=== PATIENT | male | born 1960 | race Caucasian/White ===

== ENCOUNTER → 2018-11-16 | Outpatient (CLI) | payer OTHER ==
[2018-11-16 09:06] LABS: BASO % 1 % (0-3); EOS # 0.3 x10^3/uL (0.0-0.7); EOS % 6 % (0-3); HEMATOCRIT 43.2 % (39.0-53.0); HEMOGLOBIN 14.5 g/dL (13.0-17.5); LYMPH # 0.7 x10^3/uL (1.0-4.8); LYMPH % 15 % (24-48); MEAN CORPUSCULAR HEMOGLOBIN 29 pg (25-35); MEAN CORPUSCULAR HGB CONC 34 g/dL (31-37); MEAN CORPUSCULAR VOLUME 87 fL (79-100); MONO % 24 % (0-9); NEUT # 2.4 x10^3uL (1.8-7.7); NEUT % 54 % (31-73); PLATELET COUNT 201 x10^3/uL (140-400); RED BLOOD COUNT 4.95 x10^6/uL (4.30-5.70); RED CELL DISTRIBUTION WIDTH 14.3 % (11.5-14.5); WHITE BLOOD COUNT 4.4 x10^3/uL (4.0-11.0)
[2018-11-16 12:50] LABS: % ATYL 1 % (0-0); % BANDS 17 % (0-9); % BASOS 1 % (0-3); % EOS 4 % (0-5); % LYMPHS 16 % (24-48); % MONOS 21 % (0-10); % SEGS 40 % (35-66); PLT ESTIMATE ADEQUATE (ADEQUATE)
[2018-11-16 19:09] LABS: ESTRADIOL LEVEL 79.9 pg/mL (7.6-42.6)
[2018-11-19 09:08] LABS: TESTOSTERONE FREE 7.22 ng/dL (5.00-21.00); TESTOSTERONE TOTAL 388 ng/dL (264-916)
== END | disposition home or self-care (01) ==
LOC: LAB 08:38
PROVIDERS: ATTEND Urology
DX: E29.1 Testicular hypofunction (principal)
CPT/HCPCS: 36415; 82670; 84402; 84403; 84443; 85007; 85025